=== PATIENT | female | born 1960 | race Hispanic/Latino ===

== ENCOUNTER 2019-03-07 09:00 | Day surgery (SDC) | payer OTHER ==
[2019-03-06 15:27] LABS: BASOPHILS % (AUTO) 0.4 % (0.0-5.0); HEMATOCRIT 40.4 % (36-48); LYMPHOCYTES % (AUTO) 39.9 % (21.0-51.0); MEAN CORPUSCULAR HEMOGLOBIN 31.2 pg (27.0-33.0); MEAN CORPUSCULAR HGB CONC 34.2 g/dL (32.0-36.0); MEAN CORPUSCULAR VOLUME 91.4 fL (79-99); NEUTROPHILS % (AUTO) 49.7 % (40.0-77.0); PLATELET COUNT (AUTO) 296 K/uL (130-400); RED BLOOD CELL COUNT(AUTO) 4.42 MIL/uL (4.00-5.50); RED CELL DISTRIBUTION WIDTH 12.2 % (11.0-15.5); WHITE BLOOD COUNT (AUTO) 8.7 K/uL (4.8-10.8)
[2019-03-06 15:32] LABS: CREATININE 0.6 mg/dL (0.5-1.5); POTASSIUM 3.6 mmol/L (3.5-5.1)
[2019-03-06 15:33] VITALS: BP 152/86
[~2019-03-07] VITALS: Ht 158.8 cm; Wt 64.9 kg
[2019-03-07] VITALS (19 sets, daily range): BP systolic 118–154; BP diastolic 71–87
[~2019-03-07 09:00] MED LIST: METO50TA18 PO
[2019-03-07] MEDS: CLINDAMYCIN 900 MG/D5% WATER 50 ML IV SCH ×2 (10:00→13:40)
[2019-03-07] MEDS ORDERED: LACTATED RINGERS 1000ML 1,000 ML IV ONE (10:07)
[2019-03-07] MEDS ORDERED: AMLO1CAP12 PO (10:24)
--- NOTE | 2019-03-07 10:45 | NUR ---
POTENTIAL FOR INFECTION: NO SHAVING NEEDED TO RIGHT SHOULDER. RIGHT SHOULDER WIPED WITH JONAS: CHLORHEXIDINE GLUCONATE 2% CLOTH PREOP PATIENTS SKIN PREP PER LIN CASANOVA MA
[2019-03-07] MEDS ORDERED: EPINEPHRINE 1 MG/ML 30ML VIAL IJ ONE (10:50)
[2019-03-07] MEDS ORDERED: MIDAZOLAM HCL 1 MG/ML 2ML VIAL ONE (12:37)
[2019-03-07] MEDS ORDERED: PROPOFOL 10 MG/ML 20ML VIAL IV ONE (12:37)
[2019-03-07] MEDS ORDERED: ROCURONIUM 10MG/1ML SYR 10 MG/ML ML ONE (12:39)
[2019-03-07] MEDS ORDERED: ROPIVACAINE 0.5% 5MG/ML 30ML IJ ONE (13:11)
[2019-03-07] MEDS ORDERED: FENTANYL CITRATE PF 50 MCG/1 ML 2ML VIAL ONE (13:13)
[2019-03-07] MEDS ORDERED: ONDANSETRON HCL 4 MG/2 ML VIAL ONE ×2 (14:03→16:47)
[2019-03-07] MEDS ORDERED: DEXAMETHASONE SOD PHOSPHATE 10MG/ML 1ML VIAL ONE (14:03)
[2019-03-07] MEDS ORDERED: NEOSTIGMINE 5MG/5ML SYR IV ONE (14:05)
[2019-03-07] MEDS ORDERED: GLYCOPYRROLATE 1 MG/5 ML SYRINGE ONE (14:05)
[2019-03-07] MEDS ORDERED: PHENYLEPHRINE HCL 10 MG/ML 1ML VIAL IV ONE (14:15)
[2019-03-07] MEDS ORDERED: KETOROLAC TROMETHAMINE 30MG/ML ONE ×2 (15:15→15:19)
[2019-03-07] MEDS ORDERED: SULF1TAB42 PO (15:42)
[2019-03-07] MEDS ORDERED: TYL3 PO (15:42)
[2019-03-07] MEDS ORDERED: NAPR-1192 PO (15:42)
[2019-03-07] MEDS ORDERED: MEPERIDINE-PF 25 MG/ML SYG ONE ×2 (15:57→16:05)
--- NOTE | 2019-03-07 16:45 | NUR ---
RECEIVE PT RECEIVED FROM PACU AWAKE ALERT ORIENTED X3. PT COMPLAINED OF SLIGHT NAUSEA AFTER TRANSPORTING. NO VOMITING. OFFERED MEDICINE BUT PT VERBALIZED RELIEF, STATES NO MORE NAUSEA. OFFERED ICE CHIPS, PT TOLERATED ICE CHIPS WELL. DRESSINGS X3 GAUZE/OPSITE TO RIGHT SHOULDER DRY AND INTACT, NO OOZING NOTED, SLING IN PLACE TO RIGHT ARM. SUPPORTED WITH PILLOWS, ICE PACK APPLIED TO SITE. CALL SUE WITHIN REACH, CALLED FOR FAMILY TO COME IN TO ROOM.
--- NOTE | 2019-03-07 17:40 | NUR ---
DISCHARGE PT DISCHARGED VIA WHEELCHAIR WITH . PT STABLE. NO NAUSEA, NO VOMITING. VOIDED PRIOR TO DISCHARGE. TOLERATING ICE CHIPS WELL. DISCHARGE INSTRUCTIONS GIVEN TO , VERBALIZED UNDERSTANDING. DRESSINGS TO RIGHT SHOULDER REMAINS DRY AND INTACT, NO OOZING NOTED, SLING TO RIGHT ARM IN PLACE, SENSATION INTACT, HAND LOTTERIES AGENT WEAK, CAPILLARY REFILLS BRISK.
== END 2019-03-07 17:40 | disposition home or self-care (01) ==
LOC: DAH 09:00
PROVIDERS: ATTEND Orthopaedic Surgery
DX: M75.101 Unspecified rotator cuff tear or rupture of right shoulder, not specified as traumatic (principal); S46.211A Strain of muscle, fascia and tendon of other parts of biceps, right arm, initial encounter; X58.XXXA Exposure to other specified factors, initial encounter; Y93.9 Activity, unspecified; Y92.89 Other specified places as the place of occurrence of the external cause; Y99.9 Unspecified external cause status; I10 Essential (primary) hypertension; Z98.890 Other specified postprocedural states; Z79.899 Other long term (current) drug therapy; M75.41 Impingement syndrome of right shoulder; F41.9 Anxiety disorder, unspecified
CPT/HCPCS: 29824; 29826; 29827; 36415; 64415; 80048; 85025; 87641; A4565; A4600; A4649 ×5; A4930; A6204; C1713; G0168; J0171; J1100; J1885 ×2; J2175 ×2; J2250; J2370; J2405; J2704; J2710; J2795; J3010; J3490 ×2; J7030; J7120